=== PATIENT | male | born 1985 | race Two or more races ===

== ENCOUNTER 2018-03-11 09:41 | Emergency (ER) | payer OTHER, BC ==
[2018-03-11] MEDS ORDERED: IBUPROFEN 800 MG TABLET PO ONE (10:04)
[2018-03-11] MEDS ORDERED: METHOCARBAMOL 500 MG TABLET PO ONE (10:04)
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
[2018-03-11 11:49] VITALS: BP 110/85
== END 2018-03-11 11:53 | disposition home or self-care (01) ==
LOC: ER 09:41
DX: S16.1XXA Strain of muscle, fascia and tendon at neck level, initial encounter (principal); S29.012A Strain of muscle and tendon of back wall of thorax, initial encounter; V43.62XA Car passenger injured in collision with other type car in traffic accident, initial encounter; M50.823 Other cervical disc disorders at C6-C7 level; M62.830 Muscle spasm of back; M54.89 Other dorsalgia; R29.818 Other symptoms and signs involving the nervous system
CPT/HCPCS: 72070; 72125; 99284

== ENCOUNTER 2018-07-26 20:19 | Emergency (ER) | payer BC, OTHER ==
[2018-07-26 20:24] VITALS: BP 118/92
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
== END 2018-07-26 21:30 | disposition home or self-care (01) ==
LOC: ER 20:19
DX: M54.6 Pain in thoracic spine (principal)
CPT/HCPCS: 99283

== ENCOUNTER → 2020-02-10 | Outpatient (CLI) | payer BC ==
--- NOTE | 2020-02-10 12:50 | ER RDC ASSESSMENT REPORT ---
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 traveled back from [place] - Symptoms Subjective Fever([place] feverish): Yes Chills: Yes Muscule Aches: Yes Runny Nose: No Sore Throat: Yes Cough (New or worsening chronic cough): Yes Shortness of breath: Yes Nausea or Vomiting: No Headache: No Abdominal Pain: No Diarrhea(3 or more loose stools in last 24 hours): No - Do you have any of the following Chronic lung disease: Asthma or emphysema or COPD: No Cystic Fibrosis: No Diabetes: No High Blood Pressure: No Cardiovascular Disease: No Chronic Kidney Disease: No Chronic Liver Disease: No Chronic blood disorder like Sickle Cell Disease: No Weak immune system due to disease or medication: No Neurologic condition that limits movement: No Developmental delay - Moderate to Severe: No Recent (within past 2 weeks) or current : No Morbid Obesity (>100 pounds over ideal weight): No Obesity Comment: Height 5 feet 9 inches weight 150 pounds - Objective Temperature: 99.1 F Pulse Rate: 85 Respiratory Rate: 20 Blood Pressure: 114/58 O2 Sat by Pulse Oximetry: 96 Objective: Given above, testing performed: If Testing Performed: Test Specimen Type Sent to General - General Information source: Patient Notes: Patient here at [facility] for COVID testing. States traveled back from [place] in the car with a colleague that was working in [place] around positive COVID patients who was symptomatic during their drive back from [place] he was tested and unknown the results patient started to have symptoms on February 06 started with chest burning initial runny nose which has resolved muscle aches especially in the ribs has an occasional cough felt like had a fever has been taking Tylenol felt a little short of breath. Reports started to feel improvement in the symptoms today but they still linger. Denies having a local PCP. Patient voices concerns over potential for COVID having been in close contact with coworker's been tested with no results yet now symptomatic. - Related Data Allergies/Adverse Reactions: No Known Allergies Allergy (Verified 07/26/18 20:20) Past Medical History - General Information source: Patient - Social History Smoking Status: Never Smoker Family History: Reviewed & Not Pertinent Renal/ Medical History: Denies: Hx Peritoneal Dialysis Physical Exam - General General appearance: Appears well, Alert In distress: None Notes: PHYSICAL EXAMINATION: GENERAL: Well-appearing and in no acute distress. HEAD: Atraumatic, normocephalic. EYES: sclera anicteric, conjunctiva are normal. ENT: nares patent. Moist mucous membranes. NECK: Normal range of motion, supple without lymphadenopathy LUNGS: CTAB and equal. No wheezes rales or rhonchi. Resp even and unlabored. Lung sounds clear. HEART: Regular rate and rhythm without murmurs ABDOMEN: Soft, nontender, normal bowel sounds, no guarding. EXTREMITIES: No cyanosis. NEUROLOGICAL: Normal speech. PSYCH: Normal mood, normal affect. SKIN: Warm, Dry, normal turgor, Diagnostic Results Laboratory Results: Patient informed of negative rapid strep and negative rapid flu results. pending strep culture pending cover testing results. Patient provided instructions regarding COVID to include: As a person under investigation for Covid 19, the [place] department of Health and Human Services, division of public health advises you to adhere to the following guidance until your test results are reported to you. If your test result is positive, you will receive additional information from your provider and your local health department at that time. Remain at home until you are cleared by the health provider or public health authorities. Keep a log of visitors to your home, notify any visitors to your home of your isolation status. If you plan to move to a new address or leave the [facility], notify the local health department in your County. Call your doctor or seek care if you have an urgent medical need. Before seeking medical care, call ahead to get instructions from the provider before arriving at the medical office clinic or hospital. Notify them that you are being tested for the virus that causes Covid 19 so that arrangements can be made, as necessary, to prevent transmission to others in the healthcare setting. Next, notify the local health department in your county. If a medical emergency arises and you need to call 911, inform the first responders that you are being tested for the virus that causes Covid 19. Next, notify the local health department in your county. Patient Education/Counseling Counseling/Education: Patient presents with upper respiratory symptoms worrisome for possible Covid 19. Patient does not have emergency worring symptoms such as difficulty b reathing, shortness of breath, chest pain, pressure, confusion or cyanosis. Patient appears suitable for discharge. Patient instructed to follow up with Urgent care or ED for persistent or worsening symptoms. Patient's vital signs are stable and patient is nontoxic in appearance. Good return precautions have been discussed with patient, patient verbalized understanding and is agreeable with discharge plan of care at this time. RDC Discharge - Discharge Clinical Impression: COVID - 19 SCREENING Condition: Stable Disposition: Home; Selfcare
[2020-02-10 12:56] VITALS: BP 114/58
[2020-02-10 13:32] LABS: A TYPE INFLUENZA AG NEGATIVE (NEGATIVE); B INFLUENZA AG NEGATIVE (NEGATIVE)
== END ==
LOC: RDC 12:01
PROVIDERS: ATTEND Nurse Practitioner Family
DX: Z20.828 Contact with and (suspected) exposure to other viral communicable diseases (principal); R50.9 Fever, unspecified; R05 Cough; R06.02 Shortness of breath; J02.9 Acute pharyngitis, unspecified; M79.10 Myalgia, unspecified site
CPT/HCPCS: 36415; 87070; 87880; 87635; 87804; C9803; 99201; 99211